=== PATIENT | female | born 2000 | race Caucasian/White ===

== ENCOUNTER 2019-07-17 11:44 | Emergency (ER) | payer OTHER ==
[2019-07-17 13:23] VITALS: BP 122/72
--- NOTE | 2019-07-17 13:30 | UC ---
Eye Complaint HPI - HPI Summary HPI Summary: 19-year-old female presents with complaints of bilateral eye redness and itching that started yesterday. States this morning she woke up with both eyes crusted shut and has continued to have some purulent drainage from the eyes. Reports she has had URI symptoms for the past week that aren't improving. Patient does wear contacts. Denies fever, chills, visual disturbances, or photophobia. - History of Current Complaint Chief Complaint: UCEye Stated Complaint: EYE IRRITATION Time Seen by Provider: 07/17/19 13:16 Hx Obtained From: Patient Hx Last Menstrual Period: "last week" Pain Intensity: 0 - Allergies/Home Medications Allergies/Adverse Reactions: Allergies Allergy/AdvReac Type Severity Reaction Status Date / Time No Known Allergies Allergy Verified 07/17/19 13:17 Home Medications: Home Medications Carboxymethylcellulose Sodium [Refresh Tears] drop BOTH EYES SEE INSTRUCTIONS PRN 07/17/19 [History] Ciprofloxacin 0.3% OPTH.DARCY* [Cipro 0.3% Opth*] 1 drop BOTH EYES Q2H 7 Days #1 btl 07/17/19 [Rx] Norgestimate-Ethinyl Estradiol [Tri-Sprintec 0.18/0.215/0.25 mg-35 Mcg] 1 tab PO DAILY 07/17/19 [History Confirmed 07/17/19] PMH/Surg Hx/FS Hx/Imm Hx Previously Healthy: Yes - Denies significant PMH - Surgical History Surgical History: None - Family History Known Family History: Negative: Diabetes - Social History Occupation: Student Lives: Dormitory/Roommates Alcohol Use: Occasionally Substance Use Type: None Smoking Status (MU): Never Smoked Tobacco Review of Systems All Other Systems Reviewed And Are Negative: Yes Constitutional: Negative: Fever, Chills Eyes: Positive: Drainage, Eye Redness. Negative: Blurred Vision, Diplopia, Photophobia ENT: Positive: Nasal Discharge, Sinus Congestion. Negative: Sore Throat, Ear Ache, Sinus Pain/Tenderness Respiratory: Negative: Shortness Of Breath, Cough Cardiovascular: Negative: Chest Pain Gastrointestinal: Positive: Negative Genitourinary: Positive: Negative Musculoskeletal: Positive: Negative Neurological/Mental Status: Positive: Negative Is Patient Immunocompromised?: No Physical Exam - Summary Physical Exam Summary: GENERAL APPEARANCE: Well developed, well nourished, alert and cooperative, and appears to be in no acute distress. EYES: Bilateral conjunctival erythema with purulent drainage. PERRL, EOM intact. Vision is grossly intact. EARS: External auditory canals and tympanic membranes clear, hearing grossly intact. NOSE: Mild nasal congestion. No nasal discharge. THROAT: Pharynx normal. No tonsilar inflammation, swelling, exudate, or lesions. Uvula midline. NECK: Neck supple, non-tender without lymphadenopathy. CARDIAC: Normal S1 and S2. No S3, S4 or murmurs. Rhythm is regular. There is no peripheral edema, cyanosis or pallor. Extremities are warm and well perfused. Capillary refill is less than 2 seconds. Peripheral pulses intact. LUNGS: Clear to auscultation without rales, rhonchi, wheezing or diminished breath sounds. ABDOMEN: Positive bowel sounds. Soft, nondistended, nontender. No guarding or rebound. No masses or hepatosplenomegally. MUSKULOSKELETAL: ROM intact to all extremities. No joint erythema or tenderness. Normal muscular development. Normal gait. SKIN: Skin normal color, texture and turgor with no lesions or eruptions. Triage Information Reviewed: Yes Vital Signs: Initial Vital Signs Temp 97.5 F 07/17/19 13:18 Pulse 62 07/17/19 13:18 Resp 16 07/17/19 13:18 BP 122/72 07/17/19 13:18 Pulse Ox 100 07/17/19 13:18 Vital Signs Reviewed: Yes Eye Complaint Course/Dx - Course Course Of Treatment: 19-year-old female presents with complaints of bilateral eye redness and itching that started yesterday. States this morning she woke up with both eyes crusted shut and has continued to have some purulent drainage from the eyes. Reports she has had URI symptoms for the past week that aren't improving. Patient does wear contacts. Denies fever, chills, visual disturbances, or photophobia. Afebrile. Vital signs stable. Patient and bilateral conjunctival erythema with drainage, some mild nasal congestion, and otherwise unremarkable exam. Recommending continued symptomatic treatment for upper respiratory infection we'll treat for a bilateral bacterial conjunctivitis with ciprofloxacin ophthalmic 1 drop both eyes every 2 hours while awake for the first 2 days then every 4 hours while awake for the next 5 days. Patient is to return here or [facility] if symptoms are not improving. Anticipatory guidance warning symptoms reviewed with the patient. Verbalizes understanding and agrees with plan of care. - Differential Dx/Diagnosis Differential Diagnosis/HQI/PQRI: Conjunctivitis, Corneal Abrasion, Foreign Body , Periorbital Cellulitis, Orbital Cellulitis Provider Diagnosis: Bilateral conjunctivitis, URI (upper respiratory infection) Discharge ED - Sign-Out/Discharge Documenting (check all that apply): Patient Departure All imaging exams completed and their final reports reviewed: No Studies - Discharge Plan Condition: Stable Disposition: HOME Prescriptions: Ciprofloxacin 0.3% OPTH.DARCY* [Cipro 0.3% Opth*] 1 drop BOTH EYES Q2H 7 Days #1 btl Patient Education Materials: Upper Respiratory Infection (ED), Conjunctivitis ( ED) Referrals: No Primary Care Phys,NOPCP [Primary Care Provider] - Additional Instructions: Start ciprofloxacin ophthalmic drops. Instill 1 drop in to the affected eye(s) every 2 hours while awake for the first 2 days then every 4 hours while awake for the next 5 days. Do not wear your contacts until you have completed the treatment. Throw out the old pair and use a new pair once you have completed you treatment. To avoid reinfection or spreading infection: * Use washcloths and towels once then launder. * Do not share washcloths or towels with others. * Change your pillow case each morning until you have finished treatment. * You should throw out any eye makeup, especially mascara, and use a new one once you have finished treatment. For the upper respiratory infection: Use an over the counter decongestant such as Sudafed to help with the congestion.. Use fluticasone (Flonase) nasal spray 2 sprays each nostril once daily. Take over the counter acetaminophen (Tylenol) or ibuprofen (Advil, Motrin) according to directions as needed for pain or fever. Follow up here or with the [facility] in 3 days if no improvement. Seek immediate medical attention in the emergency room if you develop fever greater than 100.5 F, have pain or swelling of the eye, visual disturbances, loss of vision, or any worsening of symptoms. - Billing Disposition and Condition Condition: STABLE Disposition: Home
== END 2019-07-17 13:46 | disposition home or self-care (01) ==
LOC: UCCORT 11:44
DX: H10.9 Unspecified conjunctivitis (principal); J06.9 Acute upper respiratory infection, unspecified
CPT/HCPCS: 99202; G0463